=== PATIENT | female | born 1950 | race African-American/Black ===

== ENCOUNTER 2024-09-03 12:59 | Emergency (ER) | payer MEDICARE, OTHER ==
[~2024-09-03] VITALS: Ht 170.2 cm; Wt 90.0 kg
[2024-09-03 13:04] VITALS: BP 188/89; PULSE 96; RESP 18; TEMP 98.6; O2SAT 98
[2024-09-03] MEDS ORDERED: ACET-2708 MT (15:04)
[2024-09-03] MEDS: SODIUM CHLORIDE 0.9% 500 ML IV ONE (15:15)
[2024-09-03 15:54] LABS: BASOPHILS % 0.5 % (0.0-2.0); EOSINOPHILS % 2.2 % (0.0-5.0); HEMATOCRIT. 36.9 % (36.0-48.0); HEMOGLOBIN. 11.9 g/dL (12.0-16.0); LYMPHOCYTES % 22.1 % (20.0-50.0); MEAN CORPUSCULAR HEMOGLOBIN 26.9 pg (28.0-32.0); MEAN CORPUSCULAR HGB CONC 32.3 g/dL (31.0-37.0); MEAN CORPUSCULAR VOLUME 83.4 fL (81.0-99.0); MEAN PLATELET VOLUME 8.6 fl (7.4-10.4); MONOCYTES % 6.3 % (2.0-8.0); NEUTROPHILS % 68.9 % (40.0-76.0); PLATELET 227 x1000/uL (130-400); RED BLOOD CELL COUNT 4.43 mill/uL (4.2-5.4); RED CELL DISTRIBUTION WIDTH 15.1 % (11.6-14.6); WHITE BLOOD COUNT 7.1 x1000/uL (4.5-11.0)
[2024-09-03 16:02] LABS: CHLORIDE 109 mEq/L (98-107); POTASSIUM 4.2 mEq/L (3.5-5.1); SODIUM 144 mEq/L (136-145)
[2024-09-03 16:03] LABS: CARBON DIOXIDE 28 mEq/L (21-32)
[2024-09-03 16:04] LABS: CALCIUM 9.5 mg/dL (8.7-10.4)
[2024-09-03 16:08] LABS: GLUCOSE 102 mg/dL (70-105); UREA NITROGEN BLOOD 20 mg/dL (9-23)
== END 2024-09-03 18:46 | disposition home or self-care (01) ==
LOC: ER 12:59
DX: R51.9 Headache, unspecified (principal); I10 Essential (primary) hypertension
CPT/HCPCS: 99284; 70450; 80048; 82962; 85025; 36415; 72125; 93005; J7040